=== PATIENT | female | born 1975 | race Caucasian/White ===

== ENCOUNTER → 2023-05-29 09:57 | Outpatient (BNVA) | payer OTHER, BC, SELFPAY | PROVIDERS: Visit Provider Internal Medicine | DX: R19.7 Diarrhea, unspecified (principal); K21.9 Gastro-esophageal reflux disease without esophagitis; E05.90 Thyrotoxicosis, unspecified without thyrotoxic crisis or storm; E04.2 Nontoxic multinodular goiter | CPT/HCPCS: 36415; 82784; 83516; 84439; 84443; 84480; 84481; 86376; 86800; 99204 ==

== ENCOUNTER 2023-07-29 11:44 | Outpatient (CLI) | payer OTHER, BC, SELFPAY ==
[2023-07-29 13:05] LABS: Free T4 Free Thyroxine 1.12 ng/dL (0.82-1.77); Thyroid Stimulating Hormone 2.79 uIU/mL (0.27-4.20)
== END 2023-07-29 11:45 | disposition home or self-care (01) ==
LOC: LAB 11:46
PROVIDERS: PCP Family Medicine; Visit Provider Internal Medicine
DX: E04.2 Nontoxic multinodular goiter (principal); E05.90 Thyrotoxicosis, unspecified without thyrotoxic crisis or storm
CPT/HCPCS: 36415; 84439; 84443

== ENCOUNTER → 2023-08-03 13:28 | Outpatient (BNVA) | payer OTHER, MEDICAID, SELFPAY | PROVIDERS: PCP Family Medicine; Visit Provider Internal Medicine Rheumatology | DX: M79.641 Pain in right hand (principal); R76.8 Other specified abnormal immunological findings in serum; E04.2 Nontoxic multinodular goiter; E05.90 Thyrotoxicosis, unspecified without thyrotoxic crisis or storm; Z79.899 Other long term (current) drug therapy; M79.671 Pain in right foot; M54.2 Cervicalgia; M25.50 Pain in unspecified joint; K21.9 Gastro-esophageal reflux disease without esophagitis; R19.7 Diarrhea, unspecified | CPT/HCPCS: 36415; 72040; 73130; 73630; 82306; 84480; 84481; 84550; 85651; 86140; 86160; 86162; 86235; 86255; 86376; 86800; 99204; 99214 ==

== ENCOUNTER 2023-09-10 10:25 | Outpatient (CLI) | payer OTHER, MEDICAID, SELFPAY ==
[2023-09-10 11:24] LABS: Estmated Average Glucose 123; Hemoglobin A1C 5.9 % (4.0-6.0)
[2023-09-10 11:25] LABS: Alanine Aminotransferase 100 U/L (0-33); Albumin Level 4.1 g/dL (3.5-5.2); Alkaline Phosphatase 71 U/L (35-105); Aspartate Amino Transferase 61 U/L (0-32); Blood Urea Nitrogen 12 mg/dL (6-20); Calcium 9.7 mg/dL (8.5-10.5); Carbon Dioxide 23 mmol/L (22-29); Chloride 101 mmol/L (98-107); Chol HDL Ratio 4.13 mg/dL (0.0-4.40); Cholesterol 219 mg/dL (0-200); Globulin 3.5 g/dL (1.3-4.6); Glomerular Filtration Rate 89.3 mL/min (90-130); Glucose 116 mg/dL (65-115); HDL Cholesterol 53 mg/dL (60-100); LDL Cholesterol Calculated 134 mg/dL (50-129); LDL HDL Ratio 2.53 RATIO (0.00-3.22); Osmolality Calculated 287 mOsm/kg (285-295); Sodium 138 mmol/L (136-145); Total Bilirubin 0.4 mg/dL (0.15-1.2); Total Protein 7.6 g/dL (6.6-8.7); Triglycerides 159 mg/dL (0-150)
[2023-09-10 11:35] LABS: Creatinine Urine, Random 49 mg/dL (28-217); Microalbum Creatinine Ratio Ur 20 mg/dL (0-20); Microalbumin Random Urine 1 ug/dL (0-20)
== END 2023-09-10 10:26 | disposition home or self-care (01) ==
LOC: LAB 10:27
PROVIDERS: PCP Family Medicine; Visit Provider Internal Medicine
DX: E11.9 Type 2 diabetes mellitus without complications (principal)
CPT/HCPCS: 36415; 80053; 80061; 82044; 83036

== ENCOUNTER 2023-09-11 09:05 | Outpatient (CLI) | payer OTHER, MEDICAID, SELFPAY ==
--- NOTE | 2023-09-11 10:00 | US_ITS ---
WS: [id number] RIGHT UPPER QUADRANT ULTRASOUND HISTORY: K76.0 - Fatty (change of) liver, not elsewhere classified COMPARISON: None available. Liver: 18.6 cm in length. Mild hepatomegaly and hepatic steatosis. Normal size liver with no bile stephanie t dilatation. Portal Vein: Normal hepatopetal flow with monophasic waveform. Gallbladder: Prior cholecystectomy. CBD: 0.5 cm Pancreas: Limited visualization due to body habitus. Right kidney: 11.3 cm in length. Normal size and echogenicity. No hydronephrosis or mass. Aorta and IVC: Unremarkable abdominal aorta and IVC. No ascites. IMPRESSION: 1. Prior cholecystectomy. 2. Mild hepatomegaly and hepatic steatosis. No mass identified.
== END 2023-09-11 09:06 | disposition home or self-care (01) ==
PROVIDERS: PCP Family Medicine; Visit Provider Internal Medicine
DX: K76.0 Fatty (change of) liver, not elsewhere classified (principal); Z90.49 Acquired absence of other specified parts of digestive tract; R16.0 Hepatomegaly, not elsewhere classified
CPT/HCPCS: 76705

== ENCOUNTER 2023-09-11 09:09 | Outpatient (CLI) | payer OTHER, MEDICAID, SELFPAY ==
[2023-09-11 10:51] LABS: Hepatitis A Antibody IgM Non-Reactive (Nonreactive); Hepatitis B Core AB, Total Non-Reactive (Nonreactive); Hepatitis B Surface AB 32.1 (11.5-1000); Hepatitis B Surface Antigen Non-Reactive (Nonreactive); Hepatitis C Virus Antibody Non-Reactive (Nonreactive)
== END 2023-09-11 09:10 | disposition home or self-care (01) ==
LOC: LAB 09:10
PROVIDERS: PCP Family Medicine; Visit Provider Internal Medicine
DX: K76.0 Fatty (change of) liver, not elsewhere classified (principal)
CPT/HCPCS: 86705; 86706; 86709; 86803; 87340

== ENCOUNTER → 2024-01-26 15:00 | Outpatient (BNVA) | payer BC, SELFPAY | PROVIDERS: PCP Family Medicine; Visit Provider Internal Medicine Rheumatology | DX: Z79.899 Other long term (current) drug therapy (principal); M25.50 Pain in unspecified joint; R76.8 Other specified abnormal immunological findings in serum | CPT/HCPCS: 36415; 80076; 82565; 85025; 86140 ==

== ENCOUNTER 2024-03-28 15:43 | Outpatient (CLI) | payer BC, SELFPAY ==
[2024-03-28 17:10] LABS: Thyroid Stimulating Hormone 2.49 uIU/mL (0.27-4.20)
[2024-03-28 19:20] LABS: Alanine Aminotransferase 54 U/L (0-33); Albumin Level 4.5 g/dL (3.5-5.2); Alkaline Phosphatase 80 U/L (35-105); Anion Gap 17.9 (5-19); Aspartate Amino Transferase 38 U/L (0-32); Blood Urea Nitrogen 10 mg/dL (6-20); Calcium 9.6 mg/dL (8.5-10.5); Carbon Dioxide 23 mmol/L (22-29); Chloride 102 mmol/L (98-107); Globulin 3.5 g/dL (1.3-4.6); Glomerular Filtration Rate 106.7 mL/min (90-130); Glucose 79 mg/dL (65-115); Osmolality Calculated 286 mOsm/kg (285-295); Potassium 3.9 mmol/L (3.5-5.1); Sodium 139 mmol/L (136-145); Total Bilirubin 0.2 mg/dL (0.15-1.2)
[2024-03-28 22:08] LABS: Free T4 Free Thyroxine 1.23 ng/dL (0.82-1.77)
[2024-03-29 10:34] LABS: T3 Total 130 ng/dL (76-181)
== END 2024-03-28 15:44 | disposition home or self-care (01) ==
PROVIDERS: PCP Family Medicine; Visit Provider Internal Medicine
DX: E04.2 Nontoxic multinodular goiter (principal); R76.8 Other specified abnormal immunological findings in serum; E05.90 Thyrotoxicosis, unspecified without thyrotoxic crisis or storm
CPT/HCPCS: 36415; 80053; 84439; 84443; 84480

== ENCOUNTER 2024-09-21 15:47 | Outpatient (CLI) | payer BC, SELFPAY ==
[2024-09-21 17:38] LABS: Thyroid Stimulating Hormone 3.52 uIU/mL (0.27-4.20)
== END 2024-09-21 15:48 | disposition home or self-care (01) ==
PROVIDERS: PCP Family Medicine; Visit Provider Internal Medicine
DX: E04.2 Nontoxic multinodular goiter (principal); E05.90 Thyrotoxicosis, unspecified without thyrotoxic crisis or storm
CPT/HCPCS: 36415; 84443